=== PATIENT | male | born 1955 | race Caucasian/White ===

== ENCOUNTER → 2021-04-13 | Outpatient (CLI) | payer BC ==
[~2021-04-13] MED LIST: BREO ELLIPTA 11 EACH INH; COMBIVENT0.074 GM/I INH; HABITROL 21 MG P1 EA TD; INCRUSE ELLI62.5 MCG INH; MEDROL DOSEPAK 24 MG PO
[2021-04-14 06:41] LABS: CREATININE, URINE 66.5 mg/dL (Not Estab.)
== END ==
LOC: LAB 10:30
PROVIDERS: Internal Medicine Nephrology
DX: N18.9 Chronic kidney disease, unspecified (principal)
CPT/HCPCS: 36415; 80053; 81001; 82043; 82570; 84156

== ENCOUNTER → 2021-09-12 | Outpatient (CLI) | payer BC | LOC: LAB 17:33 | PROVIDERS: Internal Medicine Nephrology | DX: N18.9 Chronic kidney disease, unspecified (principal) | CPT/HCPCS: 80053; 81001; 82570; 84156 ==